=== PATIENT | female | born 1940 | race Caucasian/White ===

== ENCOUNTER 2025-04-24 12:09 | Observation (INO) | payer OTHER ==
[2025-04-24] MEDS: SODIUM CHLORIDE 0.9% 500 ML INFUS.BAG IV ONE ×2 (12:23→13:18)
[2025-04-24 12:32] LABS: ABSOLUTE IMMATURE GRANULOCYTES 0.03 x10^3/uL (0.0-0.031); BASOPHILS # 0.05 x10^3/uL (0.01-0.08); EOSINOPHIL % 1.5 % (0.7-5.8); EOSINOPHILS # 0.20 x10^3/uL (0.04-0.36); MCHC 32.6 g/dl (32.2-35.5); MEAN CELL VOLUME 89.7 fl (79.4-94.8); MEAN PLT VOLUME 11.2 fl (9.4-12.3); MONOCYTE # 0.96 x10^3/uL (0.24-0.86); MONOCYTE % 7.2 % (4.7-12.5); RDW 13.2 % (12.5-17.0)
[2025-04-24] MEDS ORDERED: ONDANSETRON 4 MG/2 ML VIAL ONE (12:33)
[2025-04-24 12:37] LABS: BG HCT 42.0 % (32.4-45.2); VENOUS BASE EXCESS -1.9 mmol/L (-2-2); VENOUS O2 SATURATION 85.0 % (70-80); VENOUS PCO2 45.7 mmHg (38-52); VENOUS PH 7.34 (7.310-7.410)
[2025-04-24 12:40] LABS: INR 1.15 (0.83-1.09); PROTHROMBIN TIME (PATIENT) 12.7 SEC (9.7-13.0)
[2025-04-24 12:42] LABS: ACTIVATED PTT 27.3 SECONDS (25.2-36.5)
[2025-04-24] MEDS: ACETAMINOPHEN 1000 MG/100 ML BAG IVPB ONE (12:48)
[2025-04-24] MEDS: ONDANSETRON 4 MG/2 ML VIAL IVPUSH ONE (12:48)
[2025-04-24] MEDS ORDERED: ACETAMINOPHEN INJECTION 100 ML ONE (12:49)
[2025-04-24 12:51] LABS: CO2 26.0 mmol/L (21-32); GLUCOSE,RANDOM 172.0 mg/dL (74-106)
[2025-04-24 12:53] LABS: SGOT/AST 57.0 U/L (15-37)
[2025-04-24 12:54] LABS: CREATININE 0.7 mg/dL (0.55-1.3); SGPT/ALT 107.0 U/L (13-61)
[2025-04-24 12:55] LABS: TOT PROT 7.4 g/dl (6.4-8.2)
[2025-04-24 12:57] LABS: ALK PHOS 93.0 U/L (45-117)
[2025-04-24] MEDS: LACTATED RINGERS SOLUTION 1000 ML INFUS.BAG IV ONE (13:23)
[2025-04-24 13:41] LABS: HCV DIAGNOSTIC IN-HOUSE W/RFLX NON-REACTIVE (NONREACTIVE); HIV INTERPRETATION NEGATIVE (NEGATIVE)
[2025-04-24 15:00] LABS: N-TERMINAL BNP 38.7 pg/ml (5-450)
[2025-04-24] MEDS ORDERED: IBUPROFEN 400 MG TABLET (FP) PO PRN (15:54)
[2025-04-24] MEDS ORDERED: ACETAMINOPHEN 500 MG TABLET (FP) PO PRN (15:54)
[2025-04-24] MEDS ORDERED: LIDOCAINE 5% TOPICAL PATCH ONE (16:08)
[2025-04-24] MEDS: LIDOCAINE 5% TOPICAL PATCH TP SCH (16:10)
[2025-04-24 18:02] LABS: URINE APPEARANCE CLOUDY; URINE BILIRUBIN NEGATIVE (NEGATIVE); URINE COLOR YELLOW; URINE GLUCOSE (UA) NEGATIVE (NEGATIVE); URINE KETONE NEGATIVE (NEGATIVE); URINE LEUK ESTERASE NEGATIVE (NEGATIVE); URINE NITRITE NEGATIVE (NEGATIVE); URINE PROTEIN NEGATIVE (NEGATIVE); URINE UROBILINOGEN 0.2 mg/dL (0.2-1.0)
[2025-04-24] MEDS: HEPARIN NA (PORCINE) 5,000 UNITS/ML 1ML VIAL SQ SCH (23:07)
[2025-04-24] MEDS: LIDOCAINE PATCH REMOVAL MC SCH (23:35)
[2025-04-24 23:58] VITALS: BMI 25.0
[2025-04-25 05:52] VITALS: BP 100/84; PULSE 76; RESP 17; TEMP 98
[2025-04-25 07:40] LABS: ABSOLUTE IMMATURE GRANULOCYTES 0.02 x10^3/uL (0.0-0.031); BASOPHILS # 0.02 x10^3/uL (0.01-0.08); EOSINOPHIL % 2.2 % (0.7-5.8); EOSINOPHILS # 0.18 x10^3/uL (0.04-0.36); MCHC 32.3 g/dl (32.2-35.5); MEAN CELL VOLUME 90.6 fl (79.4-94.8); MEAN PLT VOLUME 11.8 fl (9.4-12.3); MONOCYTE # 0.68 x10^3/uL (0.24-0.86); MONOCYTE % 8.4 % (4.7-12.5); RDW 13.3 % (12.5-17.0)
[2025-04-25 08:38] LABS: CO2 27.0 mmol/L (21-32); GLUCOSE,RANDOM 92.0 mg/dL (74-106)
[2025-04-25 08:41] LABS: CREATININE 0.5 mg/dL (0.55-1.3)
[2025-04-25] MEDS: ACETAMINOPHEN 325 MG TABLET (FP) PO PRN (09:22)
== END 2025-04-25 11:42 | disposition home or self-care (01) ==
LOC: JER 12:09 → JERBED 14:36 → J4W 22:51
PROVIDERS: ADMIT Internal Medicine; ATTEND Internal Medicine
DX: R41.82 Altered mental status, unspecified (principal); R09.02 Hypoxemia; I95.9 Hypotension, unspecified; T42.8X5A Adverse effect of antiparkinsonism drugs and other central muscle-tone depressants, initial encounter; R42 Dizziness and giddiness; R11.2 Nausea with vomiting, unspecified; R51.9 Headache, unspecified; R53.83 Other fatigue; R61 Generalized hyperhidrosis; R00.1 Bradycardia, unspecified; R06.00 Dyspnea, unspecified; M54.40 Lumbago with sciatica, unspecified side; J81.1 Chronic pulmonary edema; N32.81 Overactive bladder; Y92.22 Religious institution as the place of occurrence of the external cause
CPT/HCPCS: 36415; 70450-TC; 71045-TC-FY; 80048; 80053; 81003; 82533; 82803; 83605; 83880; 84484; 85025; 85610; 85730; 86803; 86850; 86900; 86901; 87040; 87086; 87389; 87637-QW; 93005; 93010; 96374; 97116-GP; 97161-GP; 99291; G0378